=== PATIENT | male | born 1965 | race Caucasian/White ===

== ENCOUNTER 2017-07-18 00:14 | Emergency (ER) | payer OTHER ==
[2017-07-18 00:20] VITALS: BP 156/88
[2017-07-18] MEDS: Acetaminophen/oxyCODONE 325-5 MG Tab PO ONE ×2 (00:45→01:19)
--- NOTE | 2017-07-18 00:48 | EDM.PDOC ---
ED HPI GENERAL MEDICAL PROBLEM - General Chief Complaint: General Stated Complaint: pain to leg. s/p needle injury Time Seen by Provider: 07/18/17 00:40 Source of Information: Reports: Patient History Limitations: Reports: No Limitations - History of Present Illness INITIAL COMMENTS - FREE TEXT/NARRATIVE: Patient is a 51-year-old gentleman who presents to the emergency department this morning with a complaint of right lower extremity pain and swelling secondary to needle stick incident at 1130 yesterday. Patient states that after he had injected 10 pigs with a 16-gauge 1 inch needle, he accidentally stuck himself in right lateral lower extremity. Patient was seen at clinic by Dr. Jones, and was given Augmentin for coverage. He is up-to-date for tetanus. Patient states that pain has worsened and he has had some more swelling. Patient denies fever, nausea, vomiting, chest pain, shortness of breath. Onset: Sudden Onset Date: 07/17/17 Onset Time: 11:30 Location: Reports: Lower Extremity, Right Quality: Reports: Ache, Pressure Severity: Moderate Improves with: Reports: None Worsens with: Reports: Movement Context: Reports: Trauma Associated Symptoms: Reports: No Other Symptoms - Related Data Allergies Allergy/AdvReac Type Severity Reaction Status Date / Time shellfish derived Allergy Rash Verified 07/18/17 00:16 Home Meds: Home Meds Amoxicillin/Potassium Clav [Amox-Clav 875-125 mg Tablet] 1 tab PO BID 07/18/17 [ History] Apixaban [Eliquis] 2.5 mg PO BID 07/18/17 [History] Past Medical History Cardiovascular History: Reports: Heart Murmur Gastrointestinal History: Reports: Gastritis Psychiatric History: Reports: Depression - Infectious Disease History Infectious Disease History: Reports: Chicken Pox - Past Surgical History HEENT Surgical History: Reports: Tonsillectomy GI Surgical History: Reports: Appendectomy, Hernia, Abdominal Social & Family History - Family History Family Medical History: Noncontributory Oncologic: Reports: Lung Other Oncologic Family History: mother - Tobacco Use Smoking Status *Q: Current Some Day Smoker Years of Tobacco use: 30 Packs/Tins Daily: 1 - Alcohol Use Days Per Week of Alcohol Use: 3 Number of Drinks Per Day: 3 Total Drinks Per Week: 9 - Recreational Drug Use Recreational Drug Use: No - Living Situation & Occupation Living situation: Reports: Occupation: Employed ED ROS GENERAL - Review of Systems Review Of Systems: ROS reveals no pertinent complaints other than HPI. Constitutional: Reports: No Symptoms HEENT: Reports: No Symptoms Respiratory: Reports: No Symptoms Cardiovascular: Reports: No Symptoms Endocrine: Reports: No Symptoms GI/Abdominal: Reports: No Symptoms : Reports: No Symptoms Musculoskeletal: Reports: Leg Pain Skin: Reports: Other (Pain and swelling of right lower extremity) Neurological: Reports: No Symptoms Psychiatric: Reports: No Symptoms Hematologic/Lymphatic: Reports: No Symptoms Immunologic: Reports: No Symptoms ED EXAM, GENERAL - Physical Exam Exam: See Below Exam Limited By: No Limitations General Appearance: Alert, WD/WN, No Apparent Distress Throat/Mouth: Normal Inspection, Normal Oropharynx, No Airway Compromise Head: Atraumatic, Normocephalic Respiratory/Chest: No Respiratory Distress Back Exam: Normal Inspection Extremities: No Pedal Edema, Other (2+ PT/DP pulses. Normal capillary refill) Neurological: Alert, Oriented, Normal Cognition Psychiatric: Normal Affect, Normal Mood Skin Exam: Warm, Dry, Normal Color, No Rash, Erythema, Other (Isolated puncture wound at right lateral tib-fib. There is 4 cm oval border, erythema with minimal edema. No distal edema noted.) Lymphatic: No Adenopathy Course - Vital Signs Last Recorded V/S: Last Vital Signs Temp 97.9 F 07/18/17 00:16 Pulse 98 07/18/17 00:16 Resp 20 07/18/17 00:16 BP 156/88 H 07/18/17 00:16 Pulse Ox 96 07/18/17 00:16 - Orders/Labs/Meds Orders: Active Orders 24 hr Category Date Time Status Acetaminophen/oxyCODONE [Percocet 325-5 MG] Med 07/18/17 00:41 Once 1 tab PO ONETIME ONE cefTRIAXone [Rocephin] Med 07/18/17 00:41 Once 1 gm IM ONETIME ONE - Re-Assessments/Exams Free Text/Narrative Re-Assessment/Exam: 07/18/17 01:09 Patient afebrile, nontoxic appearing, vital signs stable. Pain subsided. 1 g Rocephin IM and 325/5 Percocet given. Patient will follow-up recheck on Thursday. 07/18/17 01:18 Departure - Departure Time of Disposition: :18 Disposition: Home, Self-Care 01 Condition: Good Clinical Impression: Needlestick injury with contaminated needle Qualifiers: Encounter type: initial encounter Qualified Code(s): W46.1XXA - Contact with contaminated hypodermic needle, initial encounter - Discharge Information Instructions: Puncture Wound, [id number], Cellulitis, Adult, [id number] Referrals: Shannna Curtis MD [Primary Care Provider] - Additional Instructions: Continue current antibiotics and follow-up with Dr. Jones on Thursday. Return to emergency department sooner if symptoms continue or worsen. - My Orders Last 24 Hours: My Active Orders 07/18/17 00:41 Acetaminophen/oxyCODONE [Percocet 325-5 MG] 1 tab PO ONETIME ONE cefTRIAXone [Rocephin] 1 gm IM ONETIME ONE - Assessment/Plan Last 24 Hours: My Active Orders 07/18/17 00:41 Acetaminophen/oxyCODONE [Percocet 325-5 MG] 1 tab PO ONETIME ONE cefTRIAXone [Rocephin] 1 gm IM ONETIME ONE Assessment:: Puncture wound to right lower extremity Plan: Continue antibiotics and follow-up with Dr. Jones on Thursday
[2017-07-18] MEDS: cefTRIAXone 1 GM Vial IM ONE (00:55)
== END 2017-07-18 01:35 | disposition home or self-care (01) ==
LOC: KA.ED 00:14
DX: S81.831A Puncture wound without foreign body, right lower leg, initial encounter (principal); F17.210 Nicotine dependence, cigarettes, uncomplicated; Z91.013 Allergy to seafood; W46.1XXA Contact with contaminated hypodermic needle, initial encounter
CPT/HCPCS: 96372; 99282; A9270-GY; J0696